=== PATIENT | male | born 1950 | race Caucasian/White ===

== ENCOUNTER 2017-06-25 11:07 | Day surgery (SDC) | payer OTHER ==
[~2017-06-25] VITALS: Ht 175.3 cm; Wt 77.3 kg
--- NOTE | 2017-06-25 05:37 | PREOPHP ---
DATE OF ADMISSION: 06/25/2017 REASON FOR ADMISSION: This 67-year-old patient is admitted for elective cataract surgery of the left eye. HISTORY OF PRESENT ILLNESS: The patient has had decreased vision in the left eye for the past year's time. The patient has previously a long-term history of chronic open-angle glaucoma, controlled with topical medication. The patient also has a positive systemic history of hypertension, hypercholesterolemia, and difficulty sleeping. MEDICATIONS: Currently includes latanoprost, timolol and brimonidine eye drops in both eyes; metoprolol; aspirin; and trazodone. ALLERGIES: THERE ARE NO KNOWN ALLERGIES. PHYSICAL EXAMINATION: On examination, the visual acuity with best correction is 20/40 in the right eye and 20/100 in the left eye. Slit lamp examination reveals anterior cortical nuclear sclerotic and posterior subcapsular cataract in the left eye. Applanation tonometry is 13 mmHg in both eyes. DIAGNOSIS: Cataract, left eye. PLAN: Cataract extraction with lens implant, left eye. The risks and alternatives of the surgery have been discussed with the patient, as well as the hope for improvement of visual acuity leading to greater ability to perform activities of daily living. The patient understands this and agrees to proceed with surgery. Dictated By: Huey Loredo MD /kiran/gio /Document#: [id number]
[2017-06-25] MEDS ORDERED: TROPICAMIDE 1% 2 ML OPH OPER SCH (12:00)
[2017-06-25] MEDS ORDERED: DICLOFENAC 0.1% 2.5 ML OPH OPER SCH (12:00)
[2017-06-25] MEDS ORDERED: CIPROFLOXACIN 0.3% 2.5 ML OPH OPER SCH (12:00)
[2017-06-25] MEDS ORDERED: CYCLOPENTOLATE/PHENYLEPH 2 ML OPH OPER SCH (12:00)
[2017-06-25 12:03] VITALS: Ht 175.3 cm; Wt 77.3 kg
[2017-06-25 12:04] VITALS: BP 130/69; PULSE 71; RESP 16
[2017-06-25] MEDS ORDERED: TRAZ100T15 PO (12:13)
[2017-06-25] MEDS ORDERED: TIMO5DRO30 BOTH EYES (12:13)
[2017-06-25] MEDS ORDERED: LATA2.5D2 BOTH EYES (12:13)
[2017-06-25] MEDS ORDERED: IPRATROPIUM (NEB) 0.5 MG/2.5 ML AMP HHN PRN (13:30)
[2017-06-25] MEDS ORDERED: OXYCODONE/ACETAMINOPHEN (5/325) TAB PO PRN ×2 (13:30)
[2017-06-25] MEDS ORDERED: MEPERIDINE 25 MG INJ IV PRN (13:30)
[2017-06-25] MEDS ORDERED: HYDROmorphONE (0.2 MG/ML) 10ML SYG IV PRN ×3 (13:30)
[2017-06-25] MEDS ORDERED: CEFAZOLIN 1 GM INJ INJ ONE (13:30)
[2017-06-25] MEDS ORDERED: HYALURONATE/CHONDROITIN 1ML OPH INJ IO ONE (13:30)
[2017-06-25] MEDS ORDERED: hydrALAzine 20 MG INJ IV PRN (13:30)
[2017-06-25] MEDS ORDERED: ONDANSETRON 4 MG INJ IV PRN (13:30)
[2017-06-25] MEDS ORDERED: FENTAnyl 50 MCG/ML VIAL IV PRN ×3 (13:30)
[2017-06-25] MEDS ORDERED: CARBACHOL 0.01% 1.5 ML OPH INJ IO ONE (13:30)
[2017-06-25] MEDS ORDERED: DIPHENHYDRAMINE 50 MG INJ IV PRN (13:30)
[2017-06-25] MEDS ORDERED: TRIMETHOBENZAMIDE 100 MG/ML VIAL IM PRN (13:30)
[2017-06-25] MEDS ORDERED: ALBUTEROL 0.083% (NEB) 2.5 MG/3 ML AMP HHN PRN (13:30)
[2017-06-25] MEDS ORDERED: MIDAZOLAM 1 MG/ML 2 ML INJ IV PRN (13:30)
[2017-06-25] MEDS ORDERED: LABETALOL HCL 20MG INJ IV PRN (13:30)
[2017-06-25] MEDS ORDERED: DEXAMETHASONE 4 MG/ML 1 ML INJ INJ ONE (13:30)
[2017-06-25] MEDS ORDERED: EPHEDrine SULFATE 50 MG/5 ML SYG IV PRN (13:30)
[2017-06-25 14:18] VITALS: BP 133/84; PULSE 78; RESP 16
[2017-06-25 14:21] VITALS: BP 146/92; PULSE 76; RESP 19
[2017-06-25 14:26] VITALS: BP 141/86; PULSE 72; RESP 10
[2017-06-25 14:31] VITALS: BP 136/87; PULSE 70; RESP 17
[2017-06-25 14:50] VITALS: BP 145/86; PULSE 74; RESP 16
--- NOTE | 2017-06-26 05:30 | OPR ---
DATE OF OPERATION: 06/25/2017 PREOPERATIVE DIAGNOSIS: Cataract, left eye. POSTOPERATIVE DIAGNOSIS: Cataract, left eye. OPERATION PERFORMED: Cataract extraction with lens implant, left eye. SURGEON: Huey Loredo MD ANESTHESIOLOGIST: Hank Parada MD ANESTHESIA: Local standby. DESCRIPTION OF PROCEDURE: The patient was brought to the operating room and placed on the table with an IV in place and the patient attached to an cardiac monitor. Oxygen was given via face mask. After some intravenous sedation was administered, local anesthesia was given using Xylocaine 2 percent with epinephrine, mixed with Marcaine 0.5 percent. This was given in a lid block and retrobulbar injection. The patient was then prepped and draped in the usual sterile manner. A wire lid speculum was inserted between the lids of the left eye. A Superblade was used to enter the anterior chamber at the corneoscleral limbus at the 10:30 o'clock position. A separate incision was made using a 3.0-mm keratome which entered the corneoscleral junction at the 12 o'clock position. Through this 3- mm opening, an irrigating cystotome was introduced into the anterior chamber. The chamber was filled with Viscoat and an anterior capsulotomy was performed. Balanced salt solution was then used for hydrodissection of the lens. A phacoemulsification handpiece was then brought into the field and introduced into the anterior chamber. The lens nucleus was emulsified using a deep groove and cracking the nucleus into quadrants. Following this, each quadrant was aspirated and emulsified at the pupillary margin. After this was completed, the irrigation/aspiration handpiece was brought to the field, introduced into the posterior chamber, and the lens cortical material was removed. When this was completed, additional Viscoat was injected into the anterior and posterior chambers. The 3-mm opening had its internal lips enlarged, and then the posterior chamber intraocular lens measuring 17.5 diopter posterior chamber intraocular lens ([employer] Model LI61AO) was then injected into the posterior chamber using the lens injector system. After the leading haptic was introduced into the capsular bag and the lens optic was present in the center of the eye, the injector was removed and the trailing haptic was grasped with non-toothed forceps and introduced into the capsular fold superiorly. A Sinskey hook was then used to rotate the intraocular lens so that the lips were oriented in the horizontal meridian. One 10-0 nylon suture was placed across the wound. Prior to tying, the irrigation/aspiration handpiece was reintroduced into the anterior chamber to remove the Viscoat. Miochol was instilled to constrict the pupil, and then the 10-0 nylon suture was tied. The ends were cut short and then the knot was buried. Then, 0.5 mL of dexamethasone and 0.5 mL of Ancef were injected into the sub-Tenon space in the inferior fornix. Ciloxan drops were then placed on the surface of the eye. The speculum was removed and a patch was applied. The patient then left the operating room in satisfactory condition. Dictated By: Huey Loredo MD /kiran/gio /Document#: [id number]
[2017-06-26] MEDS ORDERED: CEFAZOLIN 1 GM INJ ONE (18:02)
[2017-06-26] MEDS ORDERED: LIDOCAINE 4% (MPF) 5 ML INJ ONE ×2 (18:02)
[2017-06-26] MEDS ORDERED: HYALURONATE/CHONDROITIN 1ML OPH INJ ONE (18:02)
[2017-06-26] MEDS ORDERED: LIDOCAINE 2% (SDV) 5 ML INJ ONE (18:02)
[2017-06-26] MEDS ORDERED: PROPOFOL 20 ML ONE (18:02)
[2017-06-26] MEDS ORDERED: DEXAMETHASONE 4 MG/ML 1 ML INJ ONE (18:02)
[2017-06-26] MEDS ORDERED: CARBACHOL 0.01% 1.5 ML OPH INJ ONE (18:02)
[2017-06-26] MEDS ORDERED: EPINEPHrine 1 MG INJ ONE (18:02)
[2017-06-26] MEDS ORDERED: GENTAMICIN 80 MG INJ ONE (18:02)
== END 2017-06-25 15:10 | disposition home or self-care (01) ==
LOC: SDS 11:07
PROVIDERS: ATTEND Ophthalmology
DX: H26.9 Unspecified cataract (principal); I25.10 Atherosclerotic heart disease of native coronary artery without angina pectoris; Z95.1 Presence of aortocoronary bypass graft
CPT/HCPCS: 66984; J0690; J1100; V2632; J0171; J1580